=== PATIENT | female | born 1945 | race Caucasian/White ===

== ENCOUNTER 2022-06-04 15:48 | Emergency (ER) | payer MEDICARE ==
[~2022-06-04 15:48] MED LIST: ACET325C6 PO; ALEN70TA80 PO; ALPR0.5T8 PO; APIX5TAB PO; ASPI-1197 PO; DOCU100T PO; GUAI100S13 PO; IPRNEB IH; LACT10SO9 PO; METO-408 PO; MORPHINE PO; OMEP20CA12 PO; ONDA-105 PO
[2022-06-04 16:42] LABS: BASOPHILS % (AUTO) 0.8 % (0.0-5.0); EOSINOPHILS % (AUTO) 1.1 % (0.0-8.0); HEMATOCRIT 34.7 % (36-48); LYMPHOCYTES % (AUTO) 9.4 % (21.0-51.0); MEAN CORPUSCULAR HEMOGLOBIN 26.5 pg (27.0-33.0); MEAN CORPUSCULAR HGB CONC 32.9 g/dL (32.0-36.0); MEAN CORPUSCULAR VOLUME 80.7 fL (79-99); MONOCYTES % (AUTO) 16.9 % (3.0-13.0); NEUTROPHILS % (AUTO) 71.4 % (40.0-77.0); PLATELET COUNT (AUTO) 284 K/uL (130-400); RED CELL DISTRIBUTION WIDTH 20.4 % (11.0-15.5); WHITE BLOOD COUNT (AUTO) 5.2 K/uL (4.8-10.8)
[2022-06-04 16:55] LABS: CREATININE 0.7 mg/dL (0.5-1.5); POTASSIUM 4.5 mmol/L (3.5-5.1)
[2022-06-04 17:00] LABS: ALBUMIN 2.6 g/dL (3.5-5.0); TOTAL PROTEIN, SERUM 6.7 g/dL (6.0-8.3)
[2022-06-04 17:01] LABS: B-TYPE NATRIURETIC PEPTIDE 208 pg/mL (0-100)
[2022-06-04] MEDS ORDERED: KETOROLAC 15MG/ML VIAL (15MG/ML) IV STA (17:50)
[2022-06-04 18:05] VITALS: BP 122/68
[2022-06-06] MEDS ORDERED: ALPR0.255 PO (23:27)
[2022-06-06] MEDS ORDERED: ACET-2079 PO (23:27)
== END 2022-06-04 18:26 | disposition home or self-care (01) ==
LOC: EDH 15:48
DX: R07.89 Other chest pain (principal); J44.9 Chronic obstructive pulmonary disease, unspecified; I50.9 Heart failure, unspecified; I25.10 Atherosclerotic heart disease of native coronary artery without angina pectoris; Z85.72 Personal history of non-Hodgkin lymphomas; Z85.9 Personal history of malignant neoplasm, unspecified; Z88.0 Allergy status to penicillin; G89.29 Other chronic pain; Z79.82 Long term (current) use of aspirin; Z79.899 Other long term (current) drug therapy
CPT/HCPCS: 99285; 84484; 80053; 83880; 85025; 36415; 71045; 96374; 93005; J1885